=== PATIENT | male | born 1955 | race Caucasian/White ===

== ENCOUNTER 2019-11-09 15:30 | Outpatient (REF) | payer OTHER, SELFPAY ==
[2019-11-09 21:27] LABS: D-Dimer 413 ng/mlFEU (<500)
== END 2019-11-09 15:50 ==
LOC: NCHCN 15:30
PROVIDERS: PCP Internal Medicine; Visit Provider Internal Medicine
DX: M79.662 Pain in left lower leg (principal)
CPT/HCPCS: 85379

== ENCOUNTER 2022-06-25 13:42 | Outpatient (REF) | payer MEDICARE, SELFPAY ==
[2022-06-25 16:21] LABS: ALT 16 U/L (16-63); AST 19 U/L (15-37); Albumin 4.2 g/dL (3.4-5.0); Alkaline Phosphatase 39 U/L (46-116); BUN 12 mg/dL (7-18); Bilirubin, Total 0.8 mg/dL (0.2-1.0); CREATININE 0.8 mg/dL (0.70-1.30); Calcium 9.4 mg/dL (8.5-10.1); Calculated LDL 68 mg/dL (<100); Chloride 96 mmol/L (98-107); Cholesterol 160 mg/dL (<200); Glucose 104 mg/dL (74-106); HDL Cholesterol 83 mg/dL (40-60); Potassium 3.7 mmol/L (3.5-5.1); Sodium 132 mmol/L (136-145); Total Protein 7.8 g/dL (6.4-8.2); Triglyceride 47 mg/dL (<150)
== END 2022-06-25 13:43 | disposition home or self-care (01) ==
LOC: NCHCN 13:42
PROVIDERS: PCP Internal Medicine; Visit Provider Internal Medicine
DX: I10 Essential (primary) hypertension (principal); M16.11 Unilateral primary osteoarthritis, right hip; H93.12 Tinnitus, left ear; H92.02 Otalgia, left ear
CPT/HCPCS: 80053; 80061

== ENCOUNTER 2023-01-28 12:41 | Outpatient (REF) | payer MEDICARE, OTHER, SELFPAY ==
[2023-01-28 15:53] LABS: Anion Gap 7.4 mmol/L (3-11); BUN 15 mg/dL (7-18); CO2 30.6 mmol/L (21.0-32.0); CREATININE 0.9 mg/dL (0.70-1.30); Calcium 9.2 mg/dL (8.5-10.1); Chloride 101 mmol/L (98-107); Estimated GFR 92.45 (mL/min/1.73m2); Glucose 94 mg/dL (74-106); Potassium 3.7 mmol/L (3.5-5.1); Sodium 139 mmol/L (136-145)
== END 2023-01-28 12:42 | disposition home or self-care (01) ==
LOC: NCHCN 12:41
PROVIDERS: PCP Internal Medicine; Visit Provider Internal Medicine
DX: I10 Essential (primary) hypertension (principal)
CPT/HCPCS: 80048

== ENCOUNTER 2024-04-02 16:43 | Outpatient (CLI) | payer MEDICARE, SELFPAY ==
[2024-04-02 16:12] LABS: Abs Immature Grans 0.01 10^3/uL (0.0-0.06); Absolute Basophil Count 0.05 10^3/uL (0.0-0.2); Absolute Eosinophil Count 0.27 10^3/uL (0.0-0.7); Absolute Lymphocyte Count 1.74 10^3/uL (1.2-3.4); Absolute Monocyte Count 0.63 10^3/uL (0.1-0.8); Absolute Neutrophil Count 2.72 10^3/uL (1.2-6.7); Basophils % 0.9 %; HCT 42.3 % (40.0-50.0); HGB 15.1 g/dL (13.5-17.5); Immature Grans % 0.2 %; Lymphocytes % 32.1 %; MCHC 35.7 % (32.0-36.0); MCV 101 fL (80-95); MPV 10.5 fL (8.0-11.0); Monocytes % 11.6 %; Neutrophils % 50.2 %; Platelet Count 188 10^3/uL (130-400); RDW 12.3 % (11.8-14.1); RDW-SD 46.1 fL; WBC 5.42 10^3/uL (4.4-10.8)
== END 2024-04-02 16:44 | disposition home or self-care (01) ==
LOC: LBO 16:43
PROVIDERS: PCP Internal Medicine; Visit Provider Family Medicine
DX: I82.409 Acute embolism and thrombosis of unspecified deep veins of unspecified lower extremity (principal)
CPT/HCPCS: 36415; 85025

== ENCOUNTER 2024-04-07 21:31 | Outpatient (REF) | payer MEDICARE, SELFPAY ==
[2024-04-07 23:33] LABS: ALT 26 U/L (16-63); AST 13 U/L (15-37); Alkaline Phosphatase 42 U/L (46-116); Anion Gap 9.1 mmol/L (3-11); BUN 15 mg/dL (7-18); Bilirubin, Total 0.59 mg/dL (0.2-1.0); CO2 29.9 mmol/L (21.0-32.0); CREATININE 0.9 mg/dL (0.70-1.30); Calcium 9.3 mg/dL (8.5-10.1); Chloride 96 mmol/L (98-107); Estimated GFR 91.88 (mL/min/1.73m2); Folate 5.5 ng/mL (8.6-20.0); Glucose 104 mg/dL (74-106); Potassium 3.8 mmol/L (3.5-5.1); Sodium 135 mmol/L (136-145); Total Protein 7.6 g/dL (6.4-8.2); Vitamin B12 167 pg/mL (193-986)
[2024-04-14 19:22] LABS: Thiamine (Vitamin B1), WB 103 nmol/L (70-180)
== END 2024-04-07 21:32 | disposition home or self-care (01) ==
LOC: NCHCN 21:31
PROVIDERS: PCP Internal Medicine; Visit Provider Nurse Practitioner Family
DX: I82.90 Acute embolism and thrombosis of unspecified vein (principal); D75.89 Other specified diseases of blood and blood-forming organs
CPT/HCPCS: 80053; 82607; 82746; 84425

== ENCOUNTER 2024-05-25 01:08 | Outpatient (CLI) | payer MEDICARE, OTHER, SELFPAY ==
--- NOTE | 2024-05-25 | DI.US_ITS ---
Exam(s) US LOWER EXTREMITY VENOUS LT EXAM: US LOWER EXTREMITY VENOUS LT CLINICAL HISTORY: EMBOLISM THROMBOSIS SUPERFICIAL VEIN LEFT LEG I82.812 TECHNIQUE: Grayscale, color, and doppler imaging of the deep venous system of the left lower extremi ty was performed. COMPARISON: US US EXTREMITY ULTASOUND LEFT from 04/01/2024 FINDINGS: There is no evidence of intraluminal thrombus and there is normal compression and augmentation demons trated within the common femoral vein, femoral vein, and popliteal vein. In the ipsilateral calf the interrogated veins also exhibit normal compression/ augmentation properti es. The ipsilateral saphenofemoral junction is patent. Scanning of the superficial saphenous vein appears patent IMPRESSION: 1. No evidence of DVT in the left lower extremity. 2. No obvious superficial thrombophlebitis DATA REPOSITORY:
== END 2024-05-25 01:28 ==
PROVIDERS: PCP Nurse Practitioner Family; Visit Provider Nurse Practitioner Family
DX: I82.812 Embolism and thrombosis of superficial veins of left lower extremity (principal)
CPT/HCPCS: 93971

== ENCOUNTER 2024-05-25 02:39 | Outpatient (CLI) | payer MEDICARE, SELFPAY ==
[2024-05-25 15:59] LABS: Abs Immature Grans 0.03 10^3/uL (0.0-0.06); Absolute Basophil Count 0.06 10^3/uL (0.0-0.2); Absolute Eosinophil Count 0.09 10^3/uL (0.0-0.7); Absolute Lymphocyte Count 2.03 10^3/uL (1.2-3.4); Absolute Monocyte Count 0.79 10^3/uL (0.1-0.8); Absolute Neutrophil Count 3.55 10^3/uL (1.2-6.7); Basophils % 0.9 %; Eosinophils % 1.4 %; HCT 44.5 % (40.0-50.0); Immature Grans % 0.5 %; MCH 35.2 pg (27.0-33.0); MCV 98 fL (80-95); MPV 9.9 fL (8.0-11.0); Monocytes % 12.1 %; Neutrophils % 54.1 %; Platelet Count 201 10^3/uL (130-400); RBC 4.55 10^6/uL (4.36-5.78); RDW 11.7 % (11.8-14.1); RDW-SD 42.3 fL; WBC 6.55 10^3/uL (4.4-10.8)
[2024-05-25 17:09] LABS: ALT 15 U/L (16-63); AST 12 U/L (15-37); Alkaline Phosphatase 45 U/L (46-116); Anion Gap 10.6 mmol/L (3-11); BUN 14 mg/dL (7-18); Bilirubin, Total 0.55 mg/dL (0.2-1.0); CO2 28.4 mmol/L (21.0-32.0); CREATININE 0.9 mg/dL (0.70-1.30); Calcium 9.7 mg/dL (8.5-10.1); Chloride 98 mmol/L (98-107); Estimated GFR 91.88 (mL/min/1.73m2); Glucose 97 mg/dL (74-106); Potassium 3.3 mmol/L (3.5-5.1); Sodium 137 mmol/L (136-145); Total Protein 8.1 g/dL (6.4-8.2); Vitamin B12 362 pg/mL (193-986)
== END 2024-05-25 02:40 | disposition home or self-care (01) ==
PROVIDERS: PCP Nurse Practitioner Family; Visit Provider Nurse Practitioner Family
DX: I10 Essential (primary) hypertension (principal); E53.8 Deficiency of other specified B group vitamins; D75.89 Other specified diseases of blood and blood-forming organs
CPT/HCPCS: 36415; 80053; 82607; 85025

== ENCOUNTER 2025-05-27 14:41 | Outpatient (REF) | payer MEDICARE, SELFPAY ==
[2025-05-27 15:29] LABS: Abs Immature Grans 0.01 10^3/uL (0.0-0.06); HCT 42.0 % (40.0-50.0); HGB 15.0 g/dL (13.5-17.5); Immature Grans % 0.2 %; MCH 35.4 pg (27.0-33.0); MCHC 35.7 % (32.0-36.0); MCV 99 fL (80-95); MPV 11.1 fL (8.0-11.0); Platelet Count 197 10^3/uL (130-400); RBC 4.24 10^6/uL (4.36-5.78); RDW 11.9 % (11.8-14.1); RDW-SD 43.2 fL; WBC 5.66 10^3/uL (4.4-10.8)
[2025-05-27 16:33] LABS: ALT 20 U/L (16-63); AST 15 U/L (15-37); Albumin 3.9 g/dL (3.4-5.0); Alkaline Phosphatase 43 U/L (46-116); Anion Gap 10.5 mmol/L (3-11); BUN 15 mg/dL (7-18); Bilirubin, Total 0.6 mg/dL (0.2-1.0); CO2 28.5 mmol/L (21.0-32.0); Calcium 9.2 mg/dL (8.5-10.1); Calculated LDL 53 mg/dL (<100); Chloride 97 mmol/L (98-107); Cholesterol 148 mg/dL (<200); Estimated GFR 98.51 (mL/min/1.73m2); Folate > 20.0 ng/mL (8.6-20.0); Glucose 100 mg/dL (74-106); HDL Cholesterol 80 mg/dL (>or=40); Potassium 3.5 mmol/L (3.5-5.1); Sodium 136 mmol/L (136-145); Total Protein 7.3 g/dL (6.4-8.2); Triglyceride 76 mg/dL (<150); Vitamin B12 414 pg/mL (193-986)
[2025-05-28 18:19] LABS: PSA, Screening 2.1 ng/mL (<=6.5)
== END 2025-05-27 14:42 | disposition home or self-care (01) ==
LOC: NCHCN 14:41
PROVIDERS: PCP Nurse Practitioner Family; Visit Provider Nurse Practitioner Family
DX: I10 Essential (primary) hypertension (principal); D75.89 Other specified diseases of blood and blood-forming organs
CPT/HCPCS: 80053; 80061; 84153; 82607; 82746; 85025